=== PATIENT | female | born 1985 | race Caucasian/White ===

== ENCOUNTER 2022-06-18 19:39 | Emergency (ER) | payer SELFPAY ==
[2022-06-18] MEDS ORDERED: Acetaminophen 500 MG TAB ONE (20:27)
[2022-06-18] MEDS ORDERED: Bicillin LA 1.2 MILLION UNITS/2 ML SYRINGE ONE (22:41)
[2022-06-18] MEDS ORDERED: Dexamethasone 10 MG/ML VIAL ONE (22:45)
== END 2022-06-18 23:04 | disposition home or self-care (01) ==
LOC: ERS 19:39
DX: J02.9 Acute pharyngitis, unspecified (principal); F17.210 Nicotine dependence, cigarettes, uncomplicated
CPT/HCPCS: 87081; 87430; 96372; 99283; J0561; J1100